=== PATIENT | female | born 1990 | race Caucasian/White ===

== ENCOUNTER → 2016-08-17 | Outpatient (CLI) | payer OTHER ==
[~2016-08-17] MED LIST: CELEXA10 MG PO; COLACE-T100 MG PO; COLACE100 MG PO; COMPAZINE5 M1 PO; DOCUSATE SODIU100 MG PO; FE-TABS325 MG PO; FEOSOL300 MG PO; FLEXERIL5 MG PO; FLINTSTONES COM1 CT1 PO; FLINTSTONES W/I1 CTB PO; IBUPROFEN600 MG PO; IRON325 M1 PO; MOTRIN800 MG PO; POTASSIUM CHLO20 MEQ PO; POTASSIUM595 MG PO; PROTONIX40 MG PO; TRAMADOL HCL50 MG PO; TYLENOL325 M1 PO; ULTRAM50 MG PO; ZOFRAN4 MG PO
[2016-08-17 13:03] LABS: BASO % 0.5 % (0.0-1.0); EOS # 0.4 10*3/uL (0.0-0.4); EOS % 6.6 % (1.0-4.0); HEMATOCRIT 40.5 % (37.0-47.0); HEMOGLOBIN 13.2 g/dl (12.0-16.0); LYMPH # 2.2 10*3/uL (1.3-4.4); LYMPH % 35.5 % (27.0-41.0); MEAN CELL VOLUME 90.8 fl (81.0-99.0); MEAN CORPUSCULAR HGB 29.6 pg (27.0-31.0); MEAN CORPUSCULAR HGB CONC 32.6 g/dl (33.0-37.0); MEAN PLATELET VOLUME 9.1 fl (9.6-12.3); MONO # 0.5 10*3/uL (0.1-1.0); MONO % 7.2 % (3.0-9.0); NEUT # 3.1 10*3/uL (2.3-7.9); NEUT % 49.7 % (47.0-73.0); PLATELET COUNT AUTOMATED 254 10*3/uL (130-400); RED BLOOD COUNT 4.46 10*6/uL (4.10-5.10); RED CELL DISTRI WIDTH 12.6 % (0-14.5); WHITE BLOOD COUNT 6.3 10*3/uL (4.8-10.8)
[2016-08-17 13:34] LABS: FREE T4 0.72 ng/dl (0.76-1.46)
[2016-08-17 13:39] LABS: THYROID STIM HORMONE (HS) 1.75 uIU/ml (0.358-4.75)
[2016-08-17 14:13] LABS: FERRITIN 88.9 ng/mL (10.0-291.0)
== END | disposition home or self-care (01) ==
LOC: LAB 12:48
PROVIDERS: Family Medicine
DX: D50.9 Iron deficiency anemia, unspecified (principal); K59.09 Other constipation; E53.8 Deficiency of other specified B group vitamins

== ENCOUNTER 2018-04-12 12:23 | Emergency (ER) | payer OTHER ==
[~2018-04-12] VITALS: Ht 165.1 cm; Wt 63.5 kg
[2018-04-12] MEDS ORDERED: NAPROSYN500 MG PO (15:52)
[2018-04-12] MEDS ORDERED: MEDROL DOSEPAK4 MG PO (15:52)
[2018-04-12] MEDS ORDERED: ROBAXIN500 M1 PO (15:52)
== END 2018-04-12 16:03 | disposition home or self-care (01) ==
LOC: ED 12:23
DX: S16.1XXA Strain of muscle, fascia and tendon at neck level, initial encounter (principal); M25.521 Pain in right elbow; M25.522 Pain in left elbow; Z79.899 Other long term (current) drug therapy; V47.5XXA Car driver injured in collision with fixed or stationary object in traffic accident, initial encounter; Y93.89 Activity, other specified; Y92.488 Other paved roadways as the place of occurrence of the external cause; Y99.8 Other external cause status

== ENCOUNTER 2018-04-14 16:58 | Emergency (ER) | payer OTHER ==
[~2018-04-14] VITALS: Ht 165.1 cm; Wt 61.2 kg
[~2018-04-14 16:58] MED LIST changes: +MEDROL DOSEPAK4 MG PO; +NAPROSYN500 MG PO; +ROBAXIN500 M1 PO
== END 2018-04-14 18:58 | disposition home or self-care (01) ==
LOC: ED 16:58
DX: G25.2 Other specified forms of tremor (principal); T38.0X5A Adverse effect of glucocorticoids and synthetic analogues, initial encounter; Y92.89 Other specified places as the place of occurrence of the external cause

== ENCOUNTER 2018-11-08 13:24 | Emergency (ER) | payer OTHER ==
[~2018-11-08] VITALS: Ht 165.1 cm; Wt 61.2 kg
--- NOTE | ~2018-11-08 | EKG ---
[place], [place] ELECTROCARDIOGRAM REPORT NAME: NOHEMI YOON UNIT #: [id number] ROOM: DOCTOR: ALLEGRA DRAFT REPORT BIRTHDATE: [birth year] [facility] Test Date: 2018-11-08 Test Time: 13:52:23 Pat Name: NOHEMI YOON Department: Room: Gender: F [employer] Developer: GUME DENT DOB: 1990 Requested By: JORGE BAUER Order Number: [id number] Reading MD: Lawrence Davies MD Measurements Intervals [place] Rate: 63 P: 68 LA: 136 QRS: 75 QRSD: 98 T: 46 QT: 419 QTc: 429 Interpretive Statements Sinus rhythm Borderline T wave abnormalities Electronically Signed On 11-09-2018 5:07:06 PDT by Lawrence Davies MD CM:EKGRPT:ELECTROCARDIOGRAM REPORT [id number] JORGE CAMPOS DRAFT REPORT JORGE BAUER DO
[2018-11-08] MEDS ORDERED: LEXAPRO20 MG PO (13:38)
[2018-11-08] MEDS ORDERED: ELMIRON100 MG PO (13:38)
[2018-11-08] MEDS ORDERED: MIRENA1 EAC1 IU (13:39)
[2018-11-08 14:03] LABS: BASO % 0.4 % (0.0-1.0); EOS # 0.3 10*3/uL (0.0-0.4); HEMATOCRIT 38.7 % (37.0-47.0); HEMOGLOBIN 12.6 g/dl (12.0-16.0); LYMPH # 1.2 10*3/uL (1.3-4.4); LYMPH % 12.5 % (27.0-41.0); MEAN CELL VOLUME 94.2 fl (81.0-99.0); MEAN CORPUSCULAR HGB 30.7 pg (27.0-31.0); MEAN CORPUSCULAR HGB CONC 32.6 g/dl (33.0-37.0); MEAN PLATELET VOLUME 8.3 fl (9.6-12.3); MONO # 0.5 10*3/uL (0.1-1.0); MONO % 4.9 % (3.0-9.0); NEUT # 7.3 10*3/uL (2.3-7.9); NEUT % 78.7 % (47.0-73.0); PLATELET COUNT AUTOMATED 243 10*3/uL (130-400); RED BLOOD COUNT 4.11 10*6/uL (4.10-5.10); RED CELL DISTRI WIDTH 12.6 % (0-14.5); WHITE BLOOD COUNT 9.2 10*3/uL (4.8-10.8)
[2018-11-08 14:17] LABS: ACT PARTIAL THROMBO TIME 23.6 SECONDS (20.0-32.1)
[2018-11-08 14:19] LABS: ALKALINE PHOSPHATASE 52 U/L (45-117); BUN 13 mg/dl (7-24); CHLORIDE 106 mmol/L (98-107); CREATININE 0.97 mg/dL (0.55-1.02); LIPASE 107 U/L (73-393); POTASSIUM 3.5 mmol/L (3.5-5.1); SGOT/AST 10 IU/L (3-35); SGPT/ALT 14 U/L (12-78); SODIUM 138 mmol/L (136-145); TOTAL PROTEIN 7.2 gm/dL (6.4-8.2)
[2018-11-08 14:21] LABS: BETA-HCG, QUANT < 1.0 mIU/mL (1-3); TROPONIN I < 0.015 ng/ml (<0.045)
[2018-11-08 14:25] LABS: BILIRUBIN NEGATIVE (NEGATIVE); BLOOD TRACE-INTACT (NEGATIVE); CLARITY CLEAR (CLEAR); COLOR YELLOW (YELLOW); GLUCOSE NEGATIVE (NEGATIVE); KETONE NEGATIVE (NEGATIVE); LEUKO ESTERASE NEGATIVE (NEGATIVE); NITRITE NEGATIVE (NEGATIVE); PH 6.5 (5.0-9.0); SPECIFIC GRAVITY <= 1.005 (1.005-1.030); UROBILINOGEN 0.2 E.U./dl (0.2-1.0)
[2018-11-08 14:47] LABS: EPITHELIAL CELLS 51-100
[2018-11-08 14:48] LABS: BACTERIA 1+; RBC 0-2 rbc/hpf (0-2)
== END 2018-11-08 15:22 | disposition home or self-care (01) ==
LOC: ED 13:24
PROVIDERS: Emergency Medicine
DX: R55 Syncope and collapse (principal); R42 Dizziness and giddiness; R11.0 Nausea; Z79.899 Other long term (current) drug therapy; M43.6 Torticollis; R61 Generalized hyperhidrosis

== ENCOUNTER 2020-12-04 19:16 | Emergency (ER) | payer OTHER ==
[~2020-12-04] VITALS: Ht 165.1 cm; Wt 63.5 kg
[~2020-12-04 19:16] MED LIST changes: +ELMIRON100 MG PO; +LEXAPRO20 MG PO; +MIRENA1 EAC1 IU
== END 2020-12-04 21:57 | disposition home or self-care (01) ==
LOC: ED 19:16
DX: T78.1XXA Other adverse food reactions, not elsewhere classified, initial encounter (principal); Y92.89 Other specified places as the place of occurrence of the external cause

== ENCOUNTER → 2021-01-26 | Day surgery (SDC) | payer OTHER ==
[~2021-01-26] VITALS: Ht 165.1 cm; Wt 63.5 kg
[~2021-01-26] MED LIST changes: +PYRIDIUM200 M1 PO; +VISTARIL25 MG PO; +ZYRTEC10 M2 PO
[2021-01-26 08:30] VITALS: BP 118/84; BP 97/72
[2021-01-26 09:20] VITALS: BP 100/66
[2021-01-26 09:35] VITALS: BP 113/74
[2021-01-26 09:50] VITALS: BP 109/80
== END | disposition home or self-care (01) ==
LOC: SDC 01-22 10:15
PROVIDERS: ATTEND Surgery
DX: K59.09 Other constipation (principal); K21.9 Gastro-esophageal reflux disease without esophagitis; F41.9 Anxiety disorder, unspecified; Z79.899 Other long term (current) drug therapy; Z20.822 Contact with and (suspected) exposure to COVID-19

== ENCOUNTER 2021-03-02 18:11 | Emergency (ER) | payer OTHER ==
[~2021-03-02] VITALS: Wt 63.5 kg
[2021-03-02] MEDS ORDERED: EPIPEN 2-P0.3 MG/0.3 IJ (21:57)
== END 2021-03-02 22:09 | disposition home or self-care (01) ==
LOC: ED 18:11
DX: T78.1XXA Other adverse food reactions, not elsewhere classified, initial encounter (principal); X58.XXXA Exposure to other specified factors, initial encounter

== ENCOUNTER 2021-11-23 18:34 | Emergency (ER) | payer OTHER ==
[~2021-11-23] VITALS: Ht 165.1 cm; Wt 72.6 kg
[~2021-11-23 18:34] MED LIST changes: +EPIPEN 2-P0.3 MG/0.3 IJ
[2021-11-23] MEDS ORDERED: NAPROSYN500 MG PO (20:09)
[2021-11-23] MEDS ORDERED: CYCLOBENZAPRINE10 MG PO (20:09)
== END 2021-11-23 20:40 | disposition home or self-care (01) ==
LOC: ED 18:34
DX: S16.1XXA Strain of muscle, fascia and tendon at neck level, initial encounter (principal); F17.200 Nicotine dependence, unspecified, uncomplicated; Z91.013 Allergy to seafood; Z79.899 Other long term (current) drug therapy; X50.1XXA Overexertion from prolonged static or awkward postures, initial encounter; Y93.E9 Activity, other interior property and clothing maintenance; Y92.098 Other place in other non-institutional residence as the place of occurrence of the external cause; Y99.8 Other external cause status

== ENCOUNTER → 2022-01-26 | Outpatient (CLI) | payer OTHER ==
[~2022-01-26] MED LIST changes: +CYCLOBENZAPRINE10 MG PO
== END ==
LOC: RAD 15:56
PROVIDERS: ATTEND Family Medicine
DX: M54.50 Low back pain, unspecified (principal)

== ENCOUNTER 2023-06-13 15:38 | Emergency (ER) | payer MEDICAID ==
[~2023-06-13] VITALS: Ht 170.1 cm; Wt 61.2 kg
[2023-06-13] MEDS ORDERED: SODIUM CHLORIDE 0.9% 1,000 ML IV ONE (16:20)
[2023-06-13 16:33] LABS: BASO % 0.4 % (0.0-1.0); EOS # 0.1 10*3/uL (0.0-0.4); HEMATOCRIT 41.5 % (37.0-47.0); LYMPH # 1.5 10*3/uL (1.3-4.4); LYMPH % 14.9 % (27.0-41.0); MEAN CELL VOLUME 91.2 fl (81.0-99.0); MEAN CORPUSCULAR HGB 29.9 pg (27.0-31.0); MEAN CORPUSCULAR HGB CONC 32.8 g/dl (33.0-37.0); MEAN PLATELET VOLUME 8.4 fl (9.6-12.3); MONO # 0.8 10*3/uL (0.1-1.0); MONO % 7.4 % (3.0-9.0); NEUT # 7.9 10*3/uL (2.3-7.9); PLATELET COUNT AUTOMATED 360 10*3/uL (130-400); RED BLOOD COUNT 4.55 10*6/uL (4.10-5.10); RED CELL DISTRI WIDTH 12.7 % (0-14.5); WHITE BLOOD COUNT 10.4 10*3/uL (4.8-10.8)
[2023-06-13 16:50] LABS: ALKALINE PHOSPHATASE 57 U/L (46-116); CHLORIDE 104 mmol/L (98-107); POTASSIUM 3.8 mmol/L (3.4-5.1); SGPT/ALT 9 U/L (5-49); TOTAL PROTEIN 7.7 gm/dL (6.0-8.0)
[2023-06-13 16:53] LABS: BUN < 5 mg/dl (9-23)
[2023-06-13] MEDS ORDERED: DIAZEPAM 10 MG/2 ML SYR IV ONE ×2 (17:20→19:30)
[2023-06-13] MEDS ORDERED: Ketorolac Tromethamine 30 MG/ML VIAL IV ONE (19:30)
== END 2023-06-13 20:03 | disposition home or self-care (01) ==
LOC: ED 15:38
PROVIDERS: Student in an Organized Health Care Education/Training Program
DX: R51.9 Headache, unspecified (principal); G47.00 Insomnia, unspecified; Z91.013 Allergy to seafood; Z79.899 Other long term (current) drug therapy

== ENCOUNTER → 2024-08-20 | Outpatient (CLI) | payer MEDICAID | END | disposition home or self-care (01) | LOC: RAD 15:25 | PROVIDERS: ATTEND Family Medicine | DX: J98.4 Other disorders of lung (principal); R05.2 Subacute cough ==

== ENCOUNTER → 2024-08-21 | Outpatient (CLI) | payer MEDICAID | END | disposition home or self-care (01) | LOC: RAD 15:04 | PROVIDERS: ATTEND Family Medicine | DX: R05.2 Subacute cough (principal) ==